=== PATIENT | male | born 1975 | race African-American/Black ===

== ENCOUNTER 2023-02-10 08:05 | Emergency (ER) | payer SELFPAY | END 2023-02-10 09:11 | disposition home or self-care (01) | LOC: MADERS 08:05 | DX: J06.9 Acute upper respiratory infection, unspecified (principal); I10 Essential (primary) hypertension; F17.210 Nicotine dependence, cigarettes, uncomplicated | CPT/HCPCS: 71045 ==

== ENCOUNTER 2023-10-05 14:10 | Emergency (ER) | payer BC, SELFPAY ==
[2023-10-05 15:30] LABS: Amphetamine Not Detected (NotDetected); Barbiturates Screen Not Detected (NotDetected); Benzodiazepine Screen Not Detected (NotDetected); Cocaine Metabolite Screen Not Detected (NotDetected); Methadone Not Detected (NotDetected); Methamphetamine Not Detected (NotDetected); Opiate Screen Not Detected (NotDetected); Oxycodone Screen Not Detected (NotDetected); Phencyclidine (PCP) Not Detected (NotDetected); THC/Cannabinoid Screen Not Detected (NotDetected); Tricyclic Screen Not Detected (NotDetected)
== END 2023-10-05 15:40 | disposition home or self-care (01) ==
LOC: MADERS 14:10
DX: F19.10 Other psychoactive substance abuse, uncomplicated (principal); E11.9 Type 2 diabetes mellitus without complications; I10 Essential (primary) hypertension; F17.210 Nicotine dependence, cigarettes, uncomplicated
CPT/HCPCS: 80306; 99282

== ENCOUNTER 2024-04-28 18:08 | Emergency (ER) | payer OTHER ==
[2024-04-28] MEDS ORDERED: Ketorolac Tromethamine 30 MG (1 mL) VIAL ONE (18:42)
== END 2024-04-28 20:26 | disposition home or self-care (01) ==
LOC: MADERS 18:08
DX: M25.511 Pain in right shoulder (principal); M54.50 Low back pain, unspecified; I10 Essential (primary) hypertension; E11.9 Type 2 diabetes mellitus without complications; F17.210 Nicotine dependence, cigarettes, uncomplicated; Z55.6 Problems related to health literacy; V89.2XXA Person injured in unspecified motor-vehicle accident, traffic, initial encounter
CPT/HCPCS: 70450; 72125; 72128; 72131; 96372; J1885

== ENCOUNTER 2024-08-30 22:57 | Emergency (ER) | payer SELFPAY ==
[2024-08-31 00:08] LABS: Bilirubin Negative (Negative); Blood, Urine Negative (Negative); Clarity Clear (Clear); Glucose, Urine (Dipstick) Negative (Negative); Ketone, Urine Negative (Negative); Leukocyte Negative (Negative); Nitrite Negative (Negative); Protein, Urine (Dipstick) Negative (Neg-Trace)
[2024-08-31 00:11] LABS: CAUTI Indications for Culture Dysuria,urgency,freq; RBC/HPF None Seen HPF (0-3); Squamous Epithelial None Seen HPF (0-3); WBC/HPF 0-3 HPF (0-3)
[2024-08-31 00:12] LABS: Urine Culture Reflex No No
[2024-08-31] MEDS ORDERED: Sodium Chloride 0.9% 1,000 ML ONE (00:23)
[2024-08-31 00:43] LABS: Hematocrit 48.2 % (42.0-52.0); Hemoglobin 15.5 g/dL (14.0-18.0); Mean Corpuscular HGB CONC 32.2 g/dL (32.0-36.0); Mean Corpuscular Hemoglobin 31.5 pg (27.0-31.0); Mean Corpuscular Volume 97.9 fl (78.0-98.0); Mean Platelet Volume 7.1 fL (7.4-10.4); Platelet Count 213 10x3/uL (130-400); RBC Distribution Width 12.1 % (11.5-14.5); Red Blood Cell (RBC) Count 4.92 mill/uL (4.70-6.10); White Blood Cell (WBC) Count 4.9 10x3/uL (4.8-10.8)
[2024-08-31 01:08] LABS: Anion Gap 12 mmol/L (10-20); BUN (Urea Nitrogen) 11 mg/dL (8.9-20.6); Calc. Creatinine Clearance 0 mL/min (70-130); Calcium 9.3 mg/dL (7.8-10.44); Carbon Dioxide 27 mmol/L (22-29); Chloride 104 mmol/L (98-107); Estimated GFR 95; Glucose 98 mg/dL (70-105); Potassium 3.7 mmol/L (3.5-5.1); Sodium 139 mmol/L (136-145)
== END 2024-08-31 02:30 | disposition home or self-care (01) ==
LOC: MADERS 22:57
DX: R34 Anuria and oliguria (principal); I10 Essential (primary) hypertension; E11.69 Type 2 diabetes mellitus with other specified complication; F17.210 Nicotine dependence, cigarettes, uncomplicated; E78.5 Hyperlipidemia, unspecified; Z79.84 Long term (current) use of oral hypoglycemic drugs
CPT/HCPCS: 80048; 81001; 85027; 96360; J7030

== ENCOUNTER 2024-09-10 06:35 | Emergency (ER) | payer SELFPAY | END 2024-09-10 07:45 | disposition home or self-care (01) | LOC: MADERS 06:35 | DX: S01.412A Laceration without foreign body of left cheek and temporomandibular area, initial encounter (principal); E11.9 Type 2 diabetes mellitus without complications; I10 Essential (primary) hypertension; F17.210 Nicotine dependence, cigarettes, uncomplicated; W20.8XXA Other cause of strike by thrown, projected or falling object, initial encounter; Z79.84 Long term (current) use of oral hypoglycemic drugs; Z79.899 Other long term (current) drug therapy | CPT/HCPCS: 12013; 99282 ==

== ENCOUNTER 2024-09-24 21:08 | Emergency (ER) | payer SELFPAY | END 2024-09-24 22:40 | disposition home or self-care (01) | LOC: MADERS 21:08 | DX: S01.81XD Laceration without foreign body of other part of head, subsequent encounter (principal); I10 Essential (primary) hypertension; E11.9 Type 2 diabetes mellitus without complications; F17.210 Nicotine dependence, cigarettes, uncomplicated; W18.30XD Fall on same level, unspecified, subsequent encounter ==

== ENCOUNTER 2025-09-29 13:23 | Emergency (ER) | payer SELFPAY | END 2025-09-29 13:48 | disposition home or self-care (01) | LOC: MADERS 13:23 | DX: Z48.00 Encounter for change or removal of nonsurgical wound dressing (principal); N49.2 Inflammatory disorders of scrotum; I10 Essential (primary) hypertension; F17.210 Nicotine dependence, cigarettes, uncomplicated; Z79.84 Long term (current) use of oral hypoglycemic drugs; Z79.899 Other long term (current) drug therapy | CPT/HCPCS: 99282 ==